=== PATIENT | male | born 1975 | race Caucasian/White ===

== ENCOUNTER 2017-11-11 06:41 | Day surgery (SDC) | payer OTHER ==
[2017-11-11] MEDS ORDERED: LIDOCAINE 4% SOLUTION 50 ML BTL (08:36)
[2017-11-11] MEDS ORDERED: MIDAZOLAM 1 MG/ML 2 ML INJ ×3 (09:20→09:21)
[2017-11-11] MEDS ORDERED: FENTAnyl 50 MCG/ML VIAL (09:20)
== END 2017-11-11 11:18 | disposition home or self-care (01) ==
LOC: GIL 06:41
DX: K29.50 Unspecified chronic gastritis without bleeding (principal); K64.4 Residual hemorrhoidal skin tags
CPT/HCPCS: 43239; 88305; 88312; 88313